=== PATIENT | male | born 1970 | race African-American/Black ===

== ENCOUNTER → 2016-09-23 | Outpatient (REF) | payer OTHER ==
[~2016-09-23] MED LIST: ADV250INH INH; ALBU0.5N IN; ALBUTEROL MDI INH; AMOX500T PO; PRED10TA2 PO; SING5CHW PO; no
[2016-09-23 12:40] LABS: CHOLESTEROL LEVEL 206 MG/DL (<200); TRIGLYCERIDES LEVEL 84 MG/DL (<150)
== END ==
LOC: M SFHCPLAZ 09:21
PROVIDERS: ATTEND Internal Medicine
DX: Z13.1 Encounter for screening for diabetes mellitus (principal); Z11.4 Encounter for screening for human immunodeficiency virus [HIV]; Z13.220 Encounter for screening for lipoid disorders

== ENCOUNTER 2020-02-15 21:44 | Emergency (ER) | payer BC, OTHER, SELFPAY ==
[~2020-02-15] VITALS: Ht 188 cm; Wt 127.3 kg
[2020-02-15] MEDS ORDERED: BUDESONIDE 0.5 MG/2 ML INHALATION SUSPENSION INH ONE (22:00)
[2020-02-15] MEDS ORDERED: IPRATROPIUM 0.5MG/ALBUTEROL 2.5MG INH SOL UD 3ML (DUONEB) NEB PRN (22:00)
[2020-02-15] MEDS: MAG SULF 1GM/100ML (MAG RUN) 1 GM in IV 1 EA IV SCH ×2 (22:01→22:10)
[2020-02-15] MEDS ORDERED: ALBUTEROL SULFATE 2.5 MG/0.5 ML INH NEB SOLN INH ONE (22:15)
--- NOTE | 2020-02-15 22:24 | REPVR ---
PROCEDURE INFORMATION: Exam: XR Chest, 1 View Exam date and time: 02/15/2020 9:50 PM Age: 49 years old Clinical indication: Shortness of breath; Additional info: Dyspnea/cough TECHNIQUE: Imaging protocol: XR of the chest Views: 1 view. COMPARISON: CT Chest with contrast 05/03/2016 2:37 PM FINDINGS: Lungs: Unremarkable. No consolidation. Pleural space: Unremarkable. No pleural effusion. No pneumothorax. Heart/Mediastinum: Unremarkable. No cardiomegaly. Bones/joints: Unremarkable. IMPRESSION: No acute findings. Electronically signed by: Maurilio Shine On 02/15/2020 22:24:26 PM
[2020-02-15 22:25] LABS: BASO # 0.1 10^3/uL (0.0-0.2); BASO % 0.7 % (0.0-1.0); EOS # 0.5 10^3/uL (0.0-0.5); EOS % 5.2 % (0.0-3.0); HEMATOCRIT 45.9 % (42.0-52.0); HEMOGLOBIN 15.1 g/dl (13.5-17.5); LYMPH # 2.1 10^3/uL (1.5-5.0); LYMPH % 22.5 % (24.0-44.0); MEAN CORPUSCULAR HEMOGLOBIN 30.6 pg (27.0-33.0); MEAN CORPUSCULAR HGB CONC 32.9 g/dl (32.0-36.5); MEAN CORPUSCULAR VOLUME 92.9 fl (80.0-96.0); MONO # 0.6 10^3/uL (0.0-0.8); MONO % 6.8 % (0.0-5.0); NEUTROPHILS # 6.1 10^3/uL (1.5-8.5); NEUTROPHILS % 64.6 % (36.0-66.0); PLATELET COUNT, AUTOMATED 256 10^3/uL (150-450); RED BLOOD COUNT 4.94 10^6/uL (4.30-6.10); WHITE BLOOD COUNT 9.4 10^3/uL (4.0-10.0)
[2020-02-15 22:32] LABS: ABG BASE EXCESS -0.5 (-2.0-2.0); ABG HCO3 26.5 MEQ/L (22.0-26.0); ABG O2 SATURATION 98.8 % (95.0-99.0); ABG PARTIAL PRESSURE CO2 52.5 mmHg (35.0-45.0); ABG PARTIAL PRESSURE O2 137.9 mmHg (75.0-100.0); ABG STANDARD HCO3 24.1 MEQ/L (22.0-26.0); ABG TOTAL CO2 28.1 MEQ/L (22.0-29.0); ABG pH (ARTERIAL) 7.321 UNITS (7.350-7.450)
[2020-02-15 22:40] LABS: ALBUMIN 4.3 GM/DL (3.2-5.2); ALT/SGPT 37 U/L (12-78); BILIRUBIN,DIRECT 0.2 MG/DL (0.0-0.2); BILIRUBIN,TOTAL 0.7 MG/DL (0.2-1.0); BLOOD UREA NITROGEN 13 MG/DL (7-18); CALCIUM LEVEL 8.9 MG/DL (8.5-10.1); CARBON DIOXIDE LEVEL 31 MEQ/L (21-32); CHLORIDE LEVEL 107 MEQ/L (98-107); CK-MB VALUE MASS 11.2 NG/ML (<3.6); CPK CREATINE PHOSPHOKINASE 789 U/L (39-308); GLOMERULAR FILTRATION RATE > 60.0 (>56); GLUCOSE, FASTING 101 MG/DL (70-100); MB/CK RELATIVE INDEX 1.42 (< OR =4); SODIUM LEVEL 139 MEQ/L (136-145); TOTAL PROTEIN 8.2 GM/DL (6.4-8.2); TROPONIN I < 0.02 NG/ML (< 0.10)
[2020-02-16 00:09] VITALS: O2SAT 94
[2020-02-16] MEDS ORDERED: PRED20TA PO (01:00)
[2020-02-16 01:09] VITALS: BP 121/68
--- NOTE | 2020-02-16 13:56 | ECGEPIP ---
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
[2020-02-16] MEDS ORDERED: IPRA0.00 NEB (16:00)
[2020-02-16] MEDS ORDERED: ALBU83IN NEB (16:36)
== END 2020-02-16 01:11 | disposition home or self-care (01) ==
LOC: M ED 21:44
DX: J45.901 Unspecified asthma with (acute) exacerbation (principal); R00.0 Tachycardia, unspecified; Z79.51 Long term (current) use of inhaled steroids
CPT/HCPCS: 36600; 71045; 80048; 80076; 82550; 82553; 82803; 84484; 85025; 87040; 87077; 93005; 93041; 94640; 94760; 96365; 99284; J3475

== ENCOUNTER 2020-02-16 15:10 | Emergency (ER) | payer SELFPAY ==
[~2020-02-16] VITALS: Ht 188 cm; Wt 104.5 kg
[~2020-02-16 15:10] MED LIST changes: +PRED20TA PO
[2020-02-16] MEDS ORDERED: ALBUTEROL SULFATE 2.5 MG/0.5 ML INH NEB SOLN INH ONE (15:30)
[2020-02-16] MEDS ORDERED: methylPREDNISolone 125MG 2ML VIAL IV ONE (15:30)
[2020-02-16] MEDS ORDERED: MAG SULF 1GM/100ML (MAG RUN) 1 GM in IV 1 EA IV ONE (15:30)
[2020-02-16] MEDS ORDERED: IPRATROPIUM 0.02% SOLN 0.5MG 2.5ML NEB INH ONE (15:30)
[2020-02-16] MEDS ORDERED: IPRA0.00 NEB (16:00)
[2020-02-16 16:08] LABS: VENOUS BASE EXCESS -1.9 (-2.0-2.0); VENOUS HCO3 26.2 MEQ/L (23.0-27.0); VENOUS O2 SATURATION 68.1 % (60.0-80.0); VENOUS PARTIAL PRESSURE O2 39.6 mmHg (30.0-50.0); VENOUS PH 7.273 UNITS (7.330-7.430); VENOUS STANDARD HCO3 22.1 MEQ/L
--- NOTE | 2020-02-16 16:09 | ECGEPIP ---
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
[2020-02-16 16:12] LABS: BASO % 0.1 % (0.0-1.0); EOS % 0.1 % (0.0-3.0); HEMOGLOBIN 15.6 g/dl (13.5-17.5); LYMPH # 0.8 10^3/uL (1.5-5.0); LYMPH % 10.8 % (24.0-44.0); MEAN CORPUSCULAR HEMOGLOBIN 31.1 pg (27.0-33.0); MEAN CORPUSCULAR HGB CONC 33.9 g/dl (32.0-36.5); MEAN CORPUSCULAR VOLUME 91.6 fl (80.0-96.0); MONO # 0.4 10^3/uL (0.0-0.8); MONO % 5.7 % (0.0-5.0); NEUTROPHILS # 5.9 10^3/uL (1.5-8.5); PLATELET COUNT, AUTOMATED 240 10^3/uL (150-450); RED BLOOD COUNT 5.02 10^6/uL (4.30-6.10); WHITE BLOOD COUNT 7.1 10^3/uL (4.0-10.0)
--- NOTE | 2020-02-16 16:16 | REPVR ---
PROCEDURE INFORMATION: Exam: XR Chest, 1 View Exam date and time: 02/16/2020 3:15 PM Age: 49 years old Clinical indication: Shortness of breath; Additional info: Dyspnea/cough TECHNIQUE: Imaging protocol: XR of the chest Views: Frontal portable upright view of the chest. COMPARISON: CR PORTABLE CHEST X-RAY 02/15/2020 10:13 PM FINDINGS: Tubes, catheters and devices: EKG leads are present overlying the chest. Lungs: The lungs are otherwise peripherally clear bilaterally. The pulmonary vasculature is normal. Pleural space: No pleural effusion. No pneumothorax. Heart/Mediastinum: The heart is normal in size and contour. Mediastinum: Stable. Bones/joints: Stable. Other findings: Moderate pulmonary hyperexpansion. IMPRESSION: Moderate pulmonary hyperexpansion. Electronically signed by: Alhaji Ferguson On 02/16/2020 16:16:24 PM
[2020-02-16 16:27] LABS: INR 1.01; PROTHROMBIN TIME 13.5 SECONDS (12.5-14.3)
[2020-02-16] MEDS ORDERED: ALBU83IN NEB (16:36)
[2020-02-16] MEDS ORDERED: NS 500 ML IV ONE (16:45)
[2020-02-16 16:55] LABS: ALBUMIN 4.7 GM/DL (3.2-5.2); BILIRUBIN,DIRECT 0.3 MG/DL (0.0-0.2); BILIRUBIN,TOTAL 1.1 MG/DL (0.2-1.0); THYROID STIMULATING HORMONE 0.488 uIU/ML (0.358-3.740); TOTAL PROTEIN 8.7 GM/DL (6.4-8.2)
[2020-02-16 17:45] VITALS: BP 137/83
== END 2020-02-16 18:06 | disposition home or self-care (01) ==
LOC: M ED 15:10
DX: J45.901 Unspecified asthma with (acute) exacerbation (principal); Z87.891 Personal history of nicotine dependence; Z79.52 Long term (current) use of systemic steroids
CPT/HCPCS: 36600; 71045; 80047; 80076; 82803; 83605; 83880; 84443; 84484; 85025; 85610; 87040; 93005; 93041; 94640; 96374; 99285; J2930; J3475

== ENCOUNTER 2021-04-09 18:22 | Emergency (ER) | payer SELFPAY, BC ==
[~2021-04-09] VITALS: Ht 188 cm; Wt 95.5 kg
[2021-04-09 18:22] VITALS: BP 172/84
[~2021-04-09 18:22] MED LIST changes: +ALBU83IN NEB; +IPRA0.00 NEB
--- OUTSIDE RECORDS SUMMARY | 2021-04-09 18:30 | CCD ---
Author Author [employer] Organization [employer] Address Unknown Phone Unavailable Care Team Providers Care Dredgemaster Name Role Phone Dong Wade Unavailable PROBLEMS Type Condition ICD9-CM Code ZTH36-XN Code Onset Dates Condition S tatus W/U Status Risk SNOMED Code Notes Problem Uncomplicated severe persistent asthma J45.50 A ctive confirmed 111747955 Problem BMI 30.0-30.9,adult Z68.30 Active confirmed 695217034 Problem Asthma with acute exacerbation, unspecified asthma severit y J45.901 Active confirmed 848252740 Problem Pulmonary nodule, right R91.1 Active confirmed [id number] ALLERGIES No Known Allergies ENCOUNTERS from 1970 to 2021-03-17 Encounter Location Date Provider Diagnosis [facility] [place] [address] [phone] [place] [address] Feb, Dong Wade IMMUNIZATIONS Vaccine Route Administration Date Status Pneumococcal Adult 0.5mL Pneumovax 23 Unknown Apr 02 18 Others Influenza 6mo & up Fluzone Unknown Apr 02, 2018 Refus ed Influenza 6mo & up Fluzone Unknown Mar 22, 2017 Refus ed SOCIAL HISTORY Tobacco Use: Social History Observation Description Date Details (start date - stop date) Former Smoker Sex Assigned At : Social History Observation Description Sex Assigned At Unknown Sexual Hx: Question Answer Notes Had sex in the last 12 months (vaginal, oral, or anal)? No Have you ever had an STD? No Alcohol Screening: Question Answer Notes Did you have a drink containing alcohol in the past year? No Points 0 Interpretation Negative BMI Care Goal Follow-Up Question Answer Notes Above Normal BMI Follow-Up Lifestyle education regarding t Tobacco Use: Question Answer Notes Are you a: former smoker How long has it been since you last smoked? > 10 years REASON FOR REFERRAL No Information VITAL SIGNS No information MEDICATIONS Medication SIG (Take, Route, Frequency, Duration) Notes Start Da te End Date Status ProAir HFA 108 (90 Base) mcg/act 2 puffs as needed Inh alation four times daily as needed for 30 days Active Symbicort 80-4.5 MCG/ACT 2 puffs Inhalation Once a day for 30 da ys Jan, Active Albuterol Sulfate (2.5 MG/3ML) 0.083% 3 ml Inhalation Three times a day for 30 days Active Full Kit Nebulizer Set - as directed dx code: J45.50 as needed f or 99 days Jan, Active Flovent Diskus 100 MCG/BLIST 1 puff Inhalation Twice a day for 3 0 day(s) Oct, Active PROCEDURES No Information RESULTS No Results REASON FOR VISIT No Information MEDICAL (GENERAL) HISTORY Type Description Date Medical History ASCVD 09/2016 4.1% Surgical History Denies surgery Hospitalization History SOB x 5 days 05/2012 Goals Section No Information Health Concerns No Information MEDICAL EQUIPMENT No Information MENTAL STATUS No Information FUNCTIONAL STATUS No Information ASSESSMENTS No Information PLAN OF TREATMENT Medication Medication Name Sig Start Date Stop Date ProAir HFA 108 (90 Base) mcg/act 2 puffs as needed Inh alation four times daily as needed for 30 days Full Kit Nebulizer Set - as directed dx code: J45.50 as need ed for 99 days Jan, Flovent Diskus 100 MCG/BLIST 1 puff Inhalation Twice a day f or 30 day(s) Oct, Albuterol Sulfate (2.5 MG/3ML) 0.083% 3 ml Inhalation Three times a day for 30 days Symbicort 80-4.5 MCG/ACT 2 puffs Inhalation Once a day for 30 da ys Jan, Next Appt Details Provider Name:Maria Eugenia Reyes, 2021-03-30 09: 00:00 AM, [address] , , [place], [address], Insurance Providers Payer Name Payer Address Payer Phone Insured Name Patient Relati onship to Insured Coverage Start Date Coverage End Date BCMALIKA FOFANA O [phone] [facility] [place] [id number] JANET GARNER
--- OUTSIDE RECORDS SUMMARY | 2021-04-09 18:30 | CCD ---
Author Author [employer] Organization [employer] Address Unknown Phone Unavailable Care Team Providers Care Rolloff Driver Name Role Phone MariaE ugenia Reyes Unavailable PROBLEMS Type Condition ICD9-CM Code FDZ15-HD Code Onset Dates Condition S tatus W/U Status Risk SNOMED Code Notes Problem Uncomplicated severe persistent asthma J45.50 A ctive confirmed 776675023 Problem BMI 30.0-30.9,adult Z68.30 Active confirmed 845558396 Problem Asthma with acute exacerbation, unspecified asthma severit y J45.901 Active confirmed 609804355 Problem Pulmonary nodule, right R91.1 Active confirmed [id number] ALLERGIES No Known Allergies ENCOUNTERS from 1970 to 2021-03-17 Encounter Location Date Provider [place] [facility] [place] [address] [phone] [place] [id number] 18 Feb, 2021 Maria Eugenia Reyes IMMUNIZATIONS Vaccine Route Administration Date Status Pneumococcal [...] Information RESULTS No Results REASON FOR VISIT albuterol and nebulizer refills MEDICAL (GENERAL) HISTORY Type Description Date Medical [...] Jan, Next Appt Details Provider Name:Maria Eugenia Eric, 2021-03-30 09: 00:00 AM, [address] , , [place], [address], Insurance Providers Payer Name Payer Address Payer Phone Insured Name Patient Relati onship to Insured Coverage Start Date Coverage End Date BCMALIKA FOFANA PPO [phone] [facility] [place] [id number] JANET GARNER
--- OUTSIDE RECORDS SUMMARY | 2021-04-09 18:30 | CCD ---
Author Author [facility] Organization [facility] Address Unknown Phone Unavailable Support Name Relationship Address Phone BENITEZ [place] [address] JESSICA GARNER Next Of Kin [address] [place] [address] FX SARAH LUCIO Next Of Kin [address] [place] [address] AAFES Next Of Kin [address] [place] [id number] BRIAN GARNER Next Of Kin [address] [place] [address] DARIEL GARNER Next Of Kin [address] [place] [address] Re-disclosure Warning The records that you are about to access may contain information from federally-assisted alcohol or drug abuse programs. If such information is present, then the following federally mandated warning applies: This information has been disclosed to you from records protected by federal confidentiality rules (42 CFR part 2). The federal rules prohibit you from making any further disclosure of this information unless further disclosure is expressly permitted by the written consent of the person to whom it pertains or as otherwise permitted by 42 CFR part 2. A general authorization for the release of medical or other information is NOT sufficient for this purpose. The Federal rules restrict any use of the information to criminally investigate or prosecute any alcohol or drug abuse patient.The records that you are about to access may contain highly sensitive health information, the redisclosure of which is protected by Article 27-F of the [facility] Public Health law. If you continue you may have access to information: Regarding HIV / AIDS; Provided by facilities licensed or operated by the [facility] Office of Mental Health; or Provided by the [place] State Office for People With Developmental Disabilities. If such information is present, then the following [facility] mandated warning applies: This information has been disclosed to you from confidential records which are protected by state law. State law prohibits you from making any further disclosure of this information without the specific written consent of the person to whom it pertains, or as otherwise permitted by law. Any unauthorized further disclosure in violation of state law may result in a fine or longterm sentence or both. A general authorization for the release of medical or other information is NOT sufficient authorization for further disc losure. Encounters Encounter Providers Location Date Indications Data Source(s ) Unknown [address] [place] [address] 03/16/2021 12:00:00 AM EDT eCW1 ([facility]) Unknown [address] [place] [address] 03/15/2021 12:00:00 AM EDT eCW1 ([facility]) Immunizations Vaccine Date Status Description Data Source(s) COVID-19 VACC, MRNA(PFIZER)/PF 11/07/2020 12:00:00 AM EDT completed [facility] COVID-19 VACCINE Pfizer 11/07/2020 12:00:00 AM EDT completed [facility] Vaccine Series Complete: YESThis Data wa s Submitted to [facility] Via [employer]. COVID-19 VACC, MRNA(PFIZER)/PF 10/17/2020 12:00:00 AM EDT completed [facility] COVID-19 VACCINE Pfizer 10/17/2020 12:00:00 AM EDT completed [facility] Vaccine Series Complete: NOThis Data was Submitted to [facility] Via [employer]. Medications Medication Brand Name Start Date Product Form Dose Route Admi nistrative Instructions Pharmacy Instructions Status Indications Reaction Description Data Source(s) 2.5 mg /3 mL (0.083 %) 03/16/2021 12:00:00 AM EDT solu tion for nebulization 300 INHALE THE CONTENTS OF ONE VIAL VIA NEBU LIZER THREE TIMES A DAY INHALE THE CONTENTS OF ONE VIAL VIA NEBULIZER THREE TIMES A DAY SOLD: 03/16/2021 [facility] 90 mcg/actuation 03/16/2021 12:00:00 AM EDT HFA aerosol inha ler 8 INHALE TWO PUFFS BY MOUTH FOUR TIMES A DAY NEEDED INHALE TWO PUFFS BY MOUTH FOUR TIMES A DAY NEEDED SOLD: 03/16/2021 [facility] 120 ACTUAT Budesonide 0.08 MG/ACTUAT / f ormoterol fumarate 0.0045 MG/ACTUAT Metered Dose Inhaler [Symbicort] Symbicort 80-4.5 MCG/ACT Symbicort 80-4.5 MCG/ACT 02/24/2021 12:00:00 AM EDT 2.0 {puffs} activ e Symbicort 80- 4.5 MCG/ACT eCW1 ([facility]) 120 ACTUAT Budesonide 0.08 MG/ACTUAT / f ormoterol fumarate 0.0045 MG/ACTUAT Metered Dose Inhaler [Symbicort] Symbicort 80-4.5 MCG/ACT Symbicort 80-4.5 MCG/ACT 02/24/2021 12:00:00 AM EDT 2.0 {puffs} activ e Symbicort 80- 4.5 MCG/ACT eCW1 ([facility]) 100 mcg/actuation 02/20/2021 12:00:00 AM EDT blister with de vice 60 INHALE ONE PUFF BY MOUTH TWICE A DAY INHALE ONE PUFF BY MOUTH TWICE A DAY SOLD: 02/21/2021 [facility] 2.5 mg /3 mL (0.083 %) 02/20/2021 12:00:00 AM EDT solu tion for nebulization 300 1 VIAL VIA NEBULIZER THREE TIMES A DAY 1 VIAL VIA NEBULIZER THREE TIMES A DAY SOLD: 02/21/2021 [facility] 90 mcg/actuation 02/20/2021 12:00:00 AM EDT HFA aerosol inha ler 8 INHALE TWO PUFFS BY MOUTH FOUR TIMES A DAY NEEDED INHALE TWO PUFFS BY MOUTH FOUR TIMES A DAY NEEDED SOLD: 02/21/2021 [facility] Full Kit Nebulizer Set - Full Kit Nebulizer Set - 02/17/2021 12:00: 00 AM EDT active Full Kit Nebulizer Set - eCW1 ([facility]) Full Kit Nebulizer Set - Full Kit Nebulizer Set - 02/17/2021 12:00: 00 AM EDT active Full Kit Nebulizer Set - eCW1 ([facility]) 2.5 mg /3 mL (0.083 %) 10/29/2020 12:00:00 AM EDT solu tion for nebulization 300 USE 1 VIAL VIA NEBULIZER THREE TIMES A D AY USE 1 VIAL VIA NEBULIZER THREE TIMES A DAY SOLD: 10/29/2020 [facility] 2.5 mg /3 mL (0.083 %) 10/29/2020 12:00:00 AM EDT solu tion for nebulization 300 USE 1 VIAL VIA NEBULIZER THREE TIMES A D AY USE 1 VIAL VIA NEBULIZER THREE TIMES A DAY SOLD: 01/09/2021 [facility] 2.5 mg /3 mL (0.083 %) 10/29/2020 12:00:00 AM EDT solu tion for nebulization 300 USE 1 VIAL VIA NEBULIZER THREE TIMES A D AY USE 1 VIAL VIA NEBULIZER THREE TIMES A DAY SOLD: 12/07/2020 [facility] 90 mcg/actuation 10/28/2020 12:00:00 AM EDT HFA aerosol inha ler 34 INHALE TWO PUFFS BY MOUTH FOUR TIMES A DAY NEEDED INHALE TWO PUFFS BY MOUTH FOUR TIMES A DAY NEEDED SOLD: 10/28/2020 [facility] 90 mcg/actuation 10/28/2020 12:00:00 AM EDT HFA aerosol inha ler 34 INHALE TWO PUFFS BY MOUTH FOUR TIMES A DAY NEEDED INHALE TWO PUFFS BY MOUTH FOUR TIMES A DAY NEEDED SOLD: 12/07/2020 [facility] 90 mcg/actuation 10/28/2020 12:00:00 AM EDT HFA aerosol inha ler 34 INHALE TWO PUFFS BY MOUTH FOUR TIMES A DAY NEEDED INHALE TWO PUFFS BY MOUTH FOUR TIMES A DAY NEEDED SOLD: 01/09/2021 [facility] 2.5 mg /3 mL (0.083 %) 06/18/2020 12:00:00 AM EST solu tion for nebulization 300 1 VIAL VIA NEBULIZER THREE TIMES A DAY 1 VIAL VIA NEBULIZER THREE TIMES A DAY SOLD: 06/18/2020 [facility] 2.5 mg /3 mL (0.083 %) 06/18/2020 12:00:00 AM EST solu tion for nebulization 300 1 VIAL VIA NEBULIZER THREE TIMES A DAY 1 VIAL VIA NEBULIZER THREE TIMES A DAY SOLD: 09/23/2020 [facility] 2.5 mg /3 mL (0.083 %) 06/18/2020 12:00:00 AM EST solu tion for nebulization 300 1 VIAL VIA NEBULIZER THREE TIMES A DAY 1 VIAL VIA NEBULIZER THREE TIMES A DAY SOLD: 08/24/2020 [facility] 2.5 mg /3 mL (0.083 %) 06/18/2020 12:00:00 AM EST solu tion for nebulization 300 1 VIAL VIA NEBULIZER THREE TIMES A DAY 1 VIAL VIA NEBULIZER THREE TIMES A DAY SOLD: 07/25/2020 [facility] 0.5 mg-3 mg(2.5 mg base)/3 mL 02/17/2020 12:00:0 0 AM EDT solution for nebulization 180 USE 1 VIAL VIA THE NEBULIZER TWO TIMES A DAY USE 1 VIAL VIA THE NEBULIZER TWO TIMES A DAY SOLD: 02/17/2020 [facility] 20 mg 02/16/2020 12:00:00 AM EDT tablet 15 TAKE THREE TABLETS BY MOUTH EVERY DAY TAKE THREE TABLETS BY MOUTH EVERY DAY SOLD: 02/16/2020 [facility] 2.5 mg /3 mL (0.083 %) 09/24/2019 12:00:00 AM EDT solu tion for nebulization 300 USE 3ML VIAL VIA NEBULIZER THREE TIMES A DAY USE 3ML VIAL VIA NEBULIZER THREE TIMES A DAY SOLD: 04/19/2020 [facility] 2.5 mg /3 mL (0.083 %) 09/24/2019 12:00:00 AM EDT solu tion for nebulization 300 USE 3ML VIAL VIA NEBULIZER THREE TIMES A DAY USE 3ML VIAL VIA NEBULIZER THREE TIMES A DAY SOLD: 05/20/2020 [facility] 90 mcg/actuation 09/24/2019 12:00:00 AM EDT HFA aerosol inha ler 17 INHALE TWO PUFFS BY MOUTH FOUR TIMES A DAY INHALE TWO PUFFS BY MOUTH FOUR TIMES A DAY SOLD: 09/23/2020 [facility] 90 mcg/actuation 09/24/2019 12:00:00 AM EDT HFA aerosol inha ler 17 INHALE TWO PUFFS BY MOUTH FOUR TIMES A DAY INHALE TWO PUFFS BY MOUTH FOUR TIMES A DAY SOLD: 08/24/2020 [facility] 2.5 mg /3 mL (0.083 %) 09/24/2019 12:00:00 AM EDT solu tion for nebulization 300 USE 3ML VIAL VIA NEBULIZER THREE TIMES A DAY USE 3ML VIAL VIA NEBULIZER THREE TIMES A DAY SOLD: 02/15/2020 [facility] 90 mcg/actuation 09/24/2019 12:00:00 AM EDT HFA aerosol inha ler 17 INHALE TWO PUFFS BY MOUTH FOUR TIMES A DAY INHALE TWO PUFFS BY MOUTH FOUR TIMES A DAY SOLD: 07/25/2020 [facility] 90 mcg/actuation 09/24/2019 12:00:00 AM EDT HFA aerosol inha ler 34 INHALE TWO PUFFS BY MOUTH FOUR TIMES A DAY INHALE TWO PUFFS BY MOUTH FOUR TIMES A DAY SOLD: 02/15/2020 [facility] 90 mcg/actuation 06/22/2019 12:00:00 AM EST HFA aerosol inha ler 17 INHALE TWO PUFFS BY MOUTH FOUR TIMES A DAY NEEDED INHALE TWO PUFFS BY MOUTH FOUR TIMES A DAY NEEDED SOLD: 06/18/2020 [facility] 90 mcg/actuation 06/22/2019 12:00:00 AM EST HFA aerosol inha ler 17 INHALE TWO PUFFS BY MOUTH FOUR TIMES A DAY NEEDED INHALE TWO PUFFS BY MOUTH FOUR TIMES A DAY NEEDED SOLD: 04/19/2020 [facility] 90 mcg/actuation 06/22/2019 12:00:00 AM EST HFA aerosol inha ler 17 INHALE TWO PUFFS BY MOUTH FOUR TIMES A DAY NEEDED INHALE TWO PUFFS BY MOUTH FOUR TIMES A DAY NEEDED SOLD: 05/20/2020 [facility] 90 mcg/actuation 06/22/2019 12:00:00 AM EST HFA aerosol inha ler 17 INHALE TWO PUFFS BY MOUTH FOUR TIMES A DAY NEEDED INHALE TWO PUFFS BY MOUTH FOUR TIMES A DAY NEEDED SOLD: 03/22/2020 [facility] Insurance Providers Payer name Policy type / Coverage type Policy ID Covered republican ID Covered republican's relationship to ross Policy Ross Plan Information [employer] [id number] SP [id number] [facility] PLAN [facility] [id number] SP [id number] ANSI-Commercial [id number] ANSI-Not a Secondary Insurance [id number] ANSI-Medicaid [id number] ANSI-Not a Secondary Insurance [id number] ANSI-Not a Secondary Insurance [id number] ANSI-Commercial [id number] ANSI-Not a Secondary Insurance [id number] ANSI-Medicaid [id number] ANSI-Not a Secondary Insurance [id number] ANSI-Medicaid [id number] ANSI-Not a Secondary Insurance [id number] ANSI-Not a Secondary Insurance [id number] ANSI-Not a Secondary Insurance [id number] SELF PAY ONLY [id number] SP [id number] ANSI-Medicaid [id number] ANSI-Not a Secondary Insurance [id number] ANSI-Not a Secondary Insurance [id number] ANSI-Medicaid [id number] ANSI-Not a Secondary Insurance [id number] ANSI-Not a Secondary Insurance [id number] ANSI-Not a Secondary Insurance [id number] ANSI-Not a Secondary Insurance [id number] ANSI-Medicaid [id number] MEDICAID [id number] SP [id number] SELF PAY ONLY SP1 SP [id number] [facility] [id number] SP [id number] SELF PAY ONLY UNAVAILABLE UNAV AILABLE SELF PAY UNAVAILABLE SP UNAVAILA BLE ANSI-Medicaid [id number] [employer] [place] PPO 302/307 [id number] SP [id number] Problems, Conditions, and Diagnoses No Information Surgeries/Procedures No Information Results No Information Social History No Information Patient Treatment Plan of Care Planned Activity Planned Date Details Description Data Source (s) 120 ACTUAT Budesonide 0.08 MG/ACTUAT / f ormoterol fumarate 0.0045 MG/ACTUAT Metered Dose Inhaler [Symbicort] 02/24/2021 12:00:00 AM EDT eCW1 ([facility]) 120 ACTUAT Budesonide 0.08 MG/ACTUAT / f ormoterol fumarate 0.0045 MG/ACTUAT Metered Dose Inhaler [Symbicort] 02/24/2021 12:00:00 AM EDT eCW1 ([facility]) Full Kit Nebulizer Set - 02/17/2021 12:00:00 AM EDT eCW1 ([facility]) Full Kit Nebulizer Set - 02/17/2021 12:00:00 AM EDT eCW1 ([facility])
--- OUTSIDE RECORDS SUMMARY | 2021-04-09 19:24 | CCD ---
Author Author [facility] Address Unknown Phone Unavailable Support Name Relationship Address Phone [place] [address] JESSICA GARNER Next Of Kin [address] [place] [address] FX SARAH LUCIO Next Of Kin [address] [place] [address] AAFES Next Of Kin [address] [id number] BRIAN GARNER Next Of Kin [address] [place] [address] DARIEL GARNER Next Of Kin [address] [place] [address] Re-disclosure Warning The records that you are [...] is protected by Article 27-F of the [facility] Public Health law. If you continue you may have access to information: Regarding HIV / AIDS; Provided by facilities licensed or operated by the [facility] Office of Mental Health; or Provided by the [place] Office for People With Developmental Disabilities. If such information is present, then the following [facility] mandated warning applies: This information has been [...] law may result in a fine or long-term sentence or both. A general authorization for the release of medical or other information is NOT sufficient authorization for further disc losure. Encounters Encounter Providers Location Date Indications Data Source(s ) Unknown [address] [facility] [address] 03/16/2021 12:00:00 AM EDT eCW1 ([facility]) Unknown [address] [facility] [address] 03/15/2021 12:00:00 AM EDT eCW1 ([facility]) Immunizations Vaccine Date Status Description Data Source(s) COVID-19 VACC, MRNA(PFIZER)/PF 11/07/2020 12:00:00 AM EDT completed [facility] COVID-19 VACCINE Pfizer 11/07/2020 12:00:00 AM EDT completed [facility] Vaccine Series Complete: YESThis Data wa s Submitted to [facility] [employer]. COVID-19 VACC, MRNA(PFIZER)/PF 10/17/2020 12:00:00 AM EDT completed [facility] COVID-19 VACCINE Pfizer 10/17/2020 12:00:00 AM EDT completed [facility] Vaccine Series Complete: NOThis Data was Submitted to [facility] [employer]. Medications Medication Brand Name Start Date Product [...] activ e Symbicort 80- 4.5 MCG/ACT eCW1 ([facility]) 120 ACTUAT Budesonide 0.08 MG/ACTUAT / f ormoterol fumarate 0.0045 MG/ACTUAT Metered Dose Inhaler [Symbicort] Symbicort 80-4.5 MCG/ACT Symbicort 80-4.5 MCG/ACT 02/24/2021 12:00:00 AM EDT 2.0 {puffs} activ e Symbicort 80- 4.5 MCG/ACT eCW1 ([facility]) 100 mcg/actuation 02/20/2021 12:00:00 AM EDT blister [...] active Full Kit Nebulizer Set - eCW1 ([facility]) Full Kit Nebulizer Set - Full Kit Nebulizer Set - 02/17/2021 12:00: 00 AM EDT active Full Kit Nebulizer Set - eCW1 ([facility]) 2.5 mg /3 mL (0.083 %) 10/29/2020 [...] FOUR TIMES A DAY NEEDED SOLD: 05/20/2020 [facility] 90 mcg/actuation 06/22/2019 12:00:00 AM EST HFA aerosol inha ler 17 INHALE TWO PUFFS BY MOUTH FOUR TIMES A DAY NEEDED INHALE TWO PUFFS BY MOUTH FOUR TIMES A DAY NEEDED SOLD: 03/22/2020 [facility] Insurance Providers Payer name Policy type / Coverage type Policy ID Covered constitution party ID Covered constitution party's relationship to ross Policy Ross Plan Information [employer] [id number] SP [id number] [facility] PLAN [facility] [id number] SP [id number] ANSI-Commercial [id number] ANSI-Not a Secondary Insurance [id number] ANSI-Medicaid [id number] ANSI-Not a Secondary Insurance [id number] ANSI-Not a Secondary Insurance [id number] ANSI-Commercial [id number] ANSI-Not a Secondary Insurance [id number] ANSI-Medicaid [id number] ANSI-Not a Secondary Insurance [id number] ANSI-Medicaid [id number] ANSI-Not a Secondary Insurance [id number] ANSI-Not a Secondary Insurance [id number] ANSI-Not a Secondary Insurance [id number] SELF PAY ONLY [id number] SP [id number] ANSI-Medicaid [id number] ANSI-Not a Secondary Insurance [id number] ANSI-Not a Secondary Insurance [id number] ANSI-Medicaid [id number] ANSI-Not a Secondary Insurance [id number] ANSI-Not a Secondary Insurance [id number] ANSI-Not a Secondary Insurance [id number] ANSI-Not a Secondary Insurance [id number] ANSI-Medicaid [id number] MEDICAID [id number] SP [id number] SELF PAY ONLY SP1 SP SP1 [facility] [id number] SP [id number] SELF PAY ONLY UNAVAILABLE UNAV AILABLE SELF PAY UNAVAILABLE SP UNAVAILA BLE ANSI-Medicaid [id number] [employer] [place] PPO 302/307 [id number] SP [id number] Problems, Conditions, and Diagnoses No Information Surgeries/Procedures No Information Results No Information Social History No Information Patient Treatment Plan of Care Planned Activity Planned Date Details Description Data Source (s) 120 ACTUAT Budesonide 0.08 MG/ACTUAT / f ormoterol fumarate 0.0045 MG/ACTUAT Metered Dose Inhaler [Symbicort] 02/24/2021 12:00:00 AM EDT eCW1 ([facility]) 120 ACTUAT Budesonide 0.08 MG/ACTUAT / f ormoterol fumarate 0.0045 MG/ACTUAT Metered Dose Inhaler [Symbicort] 02/24/2021 12:00:00 AM EDT eCW1 ([facility]) Full Kit Nebulizer Set - 02/17/2021 12:00:00 AM EDT eCW1 ([facility]) Full Kit Nebulizer Set - 02/17/2021 12:00:00 AM EDT eCW1 ([facility])
== END 2021-04-09 22:39 | disposition left against medical advice (07) ==
LOC: M ED 18:22
DX: Z53.21 Procedure and treatment not carried out due to patient leaving prior to being seen by health care provider (principal)

== ENCOUNTER 2021-04-10 22:47 | Inpatient (IN) | payer BC, SELFPAY ==
[~2021-04-10] VITALS: Ht 188 cm; Wt 100.0 kg
[2021-04-10] MEDS ORDERED: methylPREDNISolone 125MG 2ML VIAL IV ONE (22:50)
[2021-04-10] MEDS: MAG SULF 1GM/100ML (MAG RUN) 1 GM in IV 1 EA IV SCH ×2 (23:00→23:12)
[2021-04-10 23:08] LABS: BASO # 0.1 10^3/uL (0.0-0.2); BASO % 0.6 % (0.0-1.0); EOS # 0.9 10^3/uL (0.0-0.5); EOS % 6.3 % (0.0-3.0); HEMATOCRIT 47.1 % (42.0-52.0); HEMOGLOBIN 15.5 g/dl (13.5-17.5); LYMPH # 4.8 10^3/uL (1.5-5.0); MEAN CORPUSCULAR HEMOGLOBIN 30.8 pg (27.0-33.0); MEAN CORPUSCULAR HGB CONC 32.9 g/dl (32.0-36.5); MEAN CORPUSCULAR VOLUME 93.6 fl (80.0-96.0); MONO # 1.4 10^3/uL (0.0-0.8); MONO % 9.5 % (2.0-8.0); NEUTROPHILS # 7.6 10^3/uL (1.5-8.5); NEUTROPHILS % 51.3 % (36.0-66.0); PLATELET COUNT, AUTOMATED 310 10^3/uL (150-450); RED BLOOD COUNT 5.03 10^6/uL (4.30-6.10); WHITE BLOOD COUNT 14.9 10^3/uL (4.0-10.0)
[2021-04-10 23:08] LABS: ABG BASE EXCESS -3.3 (-2.0-2.0); ABG HCO3 28.2 MEQ/L (22.0-26.0); ABG O2 SATURATION 98.8 % (95.0-99.0); ABG PARTIAL PRESSURE O2 190.4 mmHg (75.0-100.0); ABG STANDARD HCO3 21.8 MEQ/L (22.0-26.0); ABG TOTAL CO2 30.7 MEQ/L (22.0-29.0)
[2021-04-10] MEDS: IPRATROPIUM 0.5MG/ALBUTEROL 2.5MG INH SOL UD 3ML (DUONEB) NEB PRN ×2 (23:10→23:38)
[2021-04-10 23:16] LABS: ABG PARTIAL PRESSURE CO2 82.6 mmHg (35.0-45.0); ABG pH (ARTERIAL) 7.151 UNITS (7.350-7.450)
[2021-04-10 23:40] LABS: ALBUMIN 4.3 GM/DL (3.2-5.2); ALT/SGPT 44 U/L (12-78); BILIRUBIN,DIRECT 0.2 MG/DL (0.0-0.2); BILIRUBIN,TOTAL 0.6 MG/DL (0.2-1.0); BLOOD UREA NITROGEN 12 MG/DL (7-18); CALCIUM LEVEL 9.3 MG/DL (8.5-10.1); CARBON DIOXIDE LEVEL 31 MEQ/L (21-32); CHLORIDE LEVEL 104 MEQ/L (98-107); CK-MB VALUE MASS 14.3 NG/ML (<3.6); CPK CREATINE PHOSPHOKINASE 847 U/L (39-308); CREATININE FOR GFR 1.32 MG/DL (0.70-1.30); GLOMERULAR FILTRATION RATE > 60.0 (>56); GLUCOSE, FASTING 146 MG/DL (70-100); MB/CK RELATIVE INDEX 1.69 (< OR =4); NT-PRO BNP 70 PG/ML (<125); POTASSIUM SERUM 4.8 MEQ/L (3.5-5.1); SODIUM LEVEL 140 MEQ/L (136-145); TOTAL PROTEIN 8.3 GM/DL (6.4-8.2); TROPONIN I < 0.02 NG/ML (< 0.10)
[2021-04-11 00:36] LABS: ABG BASE EXCESS 0.3 (-2.0-2.0); ABG HCO3 26.7 MEQ/L (22.0-26.0); ABG O2 SATURATION 96.8 % (95.0-99.0); ABG PARTIAL PRESSURE CO2 49.9 mmHg (35.0-45.0); ABG PARTIAL PRESSURE O2 92.4 mmHg (75.0-100.0); ABG STANDARD HCO3 24.7 MEQ/L (22.0-26.0); ABG TOTAL CO2 28.3 MEQ/L (22.0-29.0); ABG pH (ARTERIAL) 7.347 UNITS (7.350-7.450)
[2021-04-11] MEDS: IPRATROPIUM 0.5MG/ALBUTEROL 2.5MG INH SOL UD 3ML (DUONEB) NEB PRN ×4 (00:51→17:34)
[2021-04-11] MEDS ORDERED: IPRATROPIUM 0.5MG/ALBUTEROL 2.5MG INH SOL UD 3ML (DUONEB) NEB ONE (01:40)
[2021-04-11 02:08] VITALS: O2SAT 88
[2021-04-11] MEDS ORDERED: ACETAMINOPHEN TAB 650MG DOSE (2X325MG) PO PRN (02:55)
[2021-04-11] MEDS ORDERED: MAALOX 30 ML SUSP *UDC PO PRN (02:55)
[2021-04-11] MEDS ORDERED: MOM 30ML SUSPENSION UDC PO PRN (02:55)
[2021-04-11] MEDS ORDERED: IPRA0.00 INH (02:59)
[2021-04-11] MEDS ORDERED: FLOV100A INH (02:59)
[2021-04-11] MEDS ORDERED: PROAAER10 INH (02:59)
[2021-04-11] MEDS ORDERED: NS 1,000 ML IV SCH (03:00)
[2021-04-11] MEDS ORDERED: HOME MED LIST COMPLETE! XX SCH (03:00)
[2021-04-11] MEDS ORDERED: cefTRIAXone SOD 1 GM in D5W MINI-BAG PLUS 50 ML IV SCH (04:00)
[2021-04-11 04:20] VITALS: BP 127/88
[2021-04-11] MEDS ORDERED: AZITHROMYCIN INJ 500 MG, VIAL MATE ADAPTER 1 EACH in NS 250 ML IV SCH (05:00)
[2021-04-11] MEDS: methylPREDNISolone 125MG 2ML VIAL IV SCH ×3 (06:27→23:08)
[2021-04-11] MEDS ORDERED: AUGMENTIN 875 MG TAB PO SCH (09:00)
[2021-04-11 14:00] VITALS: BP 124/86
[2021-04-11] MEDS: HEPARIN SOD (PORCINE) 5000UNITS/ML 1ML VIAL/SYRINGE SQ SCH (19:59)
[2021-04-11] MEDS: SYMBICORT 160/4.5MCG INHALER 6GM INH SCH (20:02)
[2021-04-11 22:00] VITALS: BP 121/83
[2021-04-12] MEDS: IPRATROPIUM 0.5MG/ALBUTEROL 2.5MG INH SOL UD 3ML (DUONEB) NEB PRN ×4 (05:45→23:27)
[2021-04-12 06:00] VITALS: BP 151/68
[2021-04-12 06:00] LABS: HEMATOCRIT 40.8 % (42.0-52.0); HEMOGLOBIN 13.8 g/dl (13.5-17.5); MEAN CORPUSCULAR HEMOGLOBIN 30.8 pg (27.0-33.0); MEAN CORPUSCULAR HGB CONC 33.8 g/dl (32.0-36.5); MEAN CORPUSCULAR VOLUME 91.1 fl (80.0-96.0); PLATELET COUNT, AUTOMATED 234 10^3/uL (150-450); RED BLOOD COUNT 4.48 10^6/uL (4.30-6.10); WHITE BLOOD COUNT 13.5 10^3/uL (4.0-10.0)
[2021-04-12] MEDS: methylPREDNISolone 125MG 2ML VIAL IV SCH ×2 (06:21→14:34)
[2021-04-12 06:27] LABS: ALBUMIN 3.4 GM/DL (3.2-5.2); ALT/SGPT 35 U/L (12-78); BILIRUBIN,TOTAL 0.6 MG/DL (0.2-1.0); BLOOD UREA NITROGEN 15 MG/DL (7-18); CALCIUM LEVEL 8.8 MG/DL (8.5-10.1); CARBON DIOXIDE LEVEL 30 MEQ/L (21-32); CHLORIDE LEVEL 105 MEQ/L (98-107); GLOMERULAR FILTRATION RATE > 60.0 (>56); GLUCOSE, FASTING 135 MG/DL (70-100); POTASSIUM SERUM 4.8 MEQ/L (3.5-5.1); SODIUM LEVEL 140 MEQ/L (136-145); TOTAL PROTEIN 6.9 GM/DL (6.4-8.2)
[2021-04-12] MEDS: SYMBICORT 160/4.5MCG INHALER 6GM INH SCH ×2 (07:27→21:00)
[2021-04-12] MEDS: HEPARIN SOD (PORCINE) 5000UNITS/ML 1ML VIAL/SYRINGE SQ SCH ×2 (08:17→21:28)
[2021-04-12] MEDS ORDERED: SYMB16INH INH (09:30)
[2021-04-12] MEDS ORDERED: PRED10TA2 PO (09:31)
[2021-04-12 14:00] VITALS: BP_SYST 119; BP_SYST 135; BP_DIAS 56; BP_DIAS 68
[2021-04-12 22:00] VITALS: BP 132/88
[2021-04-13] MEDS: methylPREDNISolone 125MG 2ML VIAL IV SCH ×2 (00:05→06:06)
[2021-04-13 06:00] VITALS: BP 130/90
[2021-04-13] MEDS: SYMBICORT 160/4.5MCG INHALER 6GM INH SCH (07:18)
[2021-04-13] MEDS: HEPARIN SOD (PORCINE) 5000UNITS/ML 1ML VIAL/SYRINGE SQ SCH (08:56)
[2021-04-13] MEDS: IPRATROPIUM 0.5MG/ALBUTEROL 2.5MG INH SOL UD 3ML (DUONEB) NEB PRN (11:28)
[2021-04-13 14:00] VITALS: BP 125/89
[2021-04-13] MEDS ORDERED: predniSONE 20 MG TAB PO ONE (14:00)
== END 2021-04-13 15:10 | disposition home or self-care (01) | DRG 141 ==
LOC: M ED 22:47 → M ED INP 04-11 02:54 → M MSPAV 04-11 04:20 → OBSVTOIN 04-13 09:33
PROVIDERS: ADMIT Family Medicine; ATTEND Internal Medicine
DX: J45.901 Unspecified asthma with (acute) exacerbation (principal); J96.02 Acute respiratory failure with hypercapnia; N17.9 Acute kidney failure, unspecified; E87.2 Acidosis; Z77.22 Contact with and (suspected) exposure to environmental tobacco smoke (acute) (chronic); Z87.891 Personal history of nicotine dependence; Z79.899 Other long term (current) drug therapy

== ENCOUNTER 2022-03-30 00:33 | Emergency (ER) | payer OTHER, SELFPAY ==
[~2022-03-30 00:33] MED LIST changes: +ALBU2.5V10 NEB; -ALBU83IN NEB; +FLOV100A INH; +IPRA0.00 INH; +PROAAER10 INH; +SYMB16INH INH
[2022-03-30] MEDS ORDERED: EPINEPHrine 1MG/10ML SYRINGE 1.5IN ONE (00:34)
[2022-03-30] MEDS ORDERED: NALOXONE INJ 0.4MG/1ML VIAL (J2310 PER 1MG) ONE (00:34)
[2022-03-30] MEDS ORDERED: EPINEPHrine 1MG/10ML SYRINGE 1.5IN IV STA (01:00)
[2022-03-30] MEDS ORDERED: NALOXONE INJ 0.4MG/1ML VIAL (J2310 PER 1MG) IV STA (01:00)
[2022-03-30] MEDS ORDERED: SODIUM BICARBONATE 8.4% INJ 50 ML SYRINGE IV STA (01:00)
[2022-03-30 01:44] LABS: RSV AMPLIFICATION NEGATIVE (NEGATIVE)
== END 2022-03-30 03:30 | disposition expired ==
LOC: M ED 00:33
DX: I46.9 Cardiac arrest, cause unspecified (principal)
CPT/HCPCS: 87631; 92950; 96374; 96375; 99285; J0171; J2310